=== PATIENT | female | born 1935 | race Caucasian/White ===

== ENCOUNTER → 2016-05-10 | Outpatient (CLI) | payer MEDICARE ==
[2016-05-10 09:28] LABS: Appearance,Urine Clear (Clear); Bilirubin,Urine Negative (Negative); Glucose,Urine (UA) Negative (Negative); Ketones,Urine Negative (Negative); Leukocyte Esterase,Urine Negative (Negative); Nitrite,Urine Negative (Negative); Protein,Urine Negative (Negative); Specific Gravity,Urine 1.011 (1.001-1.035); UA Billing (MACRO vs. MICRO) CHEM; Urobilinogen,Urine <2.0 mg/dL (<2.0)
[2016-05-10 09:28] LABS: Basophils # (A) 0.1 k/uL (0-0.2); Basophils % (A) 1 %; CH 29.3; CHCM 31.9; Eosinophils # (A) 0.3 k/uL (0-0.7); Eosinophils % (A) 4 %; HCT 38.7 % (34.0-46.0); HDW 2.58; HGB 12.5 gm/dL (11.4-16.0); Luc # (Auto) 0.22; Luc % (Auto) 3; Lymphocytes # (A) 1.9 k/uL (1.0-4.8); Lymphocytes % (A) 29 %; MCH 29.8 pg (25.0-35.0); MCHC 32.3 g/dL (31.0-37.0); MCV 92.3 fL (80.0-100.0); Mean Platelet Volume 7.9; Monocytes # (A) 0.5 k/uL (0-1.0); Monocytes % (A) 8 %; Neutrophils # (A) 3.7 k/uL (1.3-7.7); Neutrophils % (A) 55 %; RBC 4.19 m/uL (3.80-5.40); RDW 14.5 % (11.5-15.5); WBC 6.7 k/uL (3.8-10.6)
[2016-05-10 14:24] LABS: Calcium 11.4 mg/dL (8.4-10.2); Magnesium 2.2 mg/dL (1.6-2.3); Phosphorous 3.7 mg/dL (2.5-4.5); Potassium 4.6 mmol/L (3.5-5.1); Uric Acid 6.6 mg/dL (3.7-7.4)
== END | disposition home or self-care (01) ==
LOC: LABWHC1 08:44
PROVIDERS: ATTEND Nurse Practitioner Family
DX: N18.3 Chronic kidney disease, stage 3 (moderate) (principal); D64.9 Anemia, unspecified; E55.9 Vitamin D deficiency, unspecified; E21.3 Hyperparathyroidism, unspecified; M10.9 Gout, unspecified; N39.0 Urinary tract infection, site not specified
CPT/HCPCS: 36415; 80048; 81003; 82306; 82728; 83540; 83550; 83735; 83970; 84100; 84550; 85025

== ENCOUNTER → 2016-07-19 | Outpatient (CLI) | payer MEDICARE ==
[2016-07-19 11:28] LABS: Basophils % (A) 1 %; CH 29.3; CHCM 32.2; Eosinophils # (A) 0.2 k/uL (0-0.7); Eosinophils % (A) 4 %; HCT 35.3 % (34.0-46.0); HDW 2.51; HGB 11.5 gm/dL (11.4-16.0); Luc % (Auto) 2; Lymphocytes # (A) 1.5 k/uL (1.0-4.8); Lymphocytes % (A) 30 %; MCH 29.8 pg (25.0-35.0); MCHC 32.5 g/dL (31.0-37.0); MCV 91.8 fL (80.0-100.0); Mean Platelet Volume 7.2; Monocytes # (A) 0.4 k/uL (0-1.0); Monocytes % (A) 9 %; Neutrophils # (A) 2.7 k/uL (1.3-7.7); Neutrophils % (A) 54 %; RBC 3.84 m/uL (3.80-5.40); RDW 14.8 % (11.5-15.5); WBC (Perox) 4.87
[2016-07-19 11:39] LABS: Calcium 10.3 mg/dL (8.4-10.2); Magnesium 2.2 mg/dL (1.6-2.3); Phosphorous 3.3 mg/dL (2.5-4.5); Potassium 4.1 mmol/L (3.5-5.1); Total Protein 7.1 g/dL (6.3-8.2); Uric Acid 6.3 mg/dL (3.7-7.4)
[2016-07-19 12:04] LABS: INR 2.7 (<1.1); Prothrombin Time 25.6 sec (9.0-12.0)
== END | disposition home or self-care (01) ==
LOC: LABWHC1 10:33
PROVIDERS: ATTEND Nurse Practitioner Family
DX: Z00.00 Encounter for general adult medical examination without abnormal findings (principal); I25.10 Atherosclerotic heart disease of native coronary artery without angina pectoris; E78.00 Pure hypercholesterolemia, unspecified; I12.9 Hypertensive chronic kidney disease with stage 1 through stage 4 chronic kidney disease, or unspecified chronic kidney disease; N18.3 Chronic kidney disease, stage 3 (moderate); E03.9 Hypothyroidism, unspecified; I48.91 Unspecified atrial fibrillation; E55.9 Vitamin D deficiency, unspecified; N25.81 Secondary hyperparathyroidism of renal origin; N39.0 Urinary tract infection, site not specified
CPT/HCPCS: 36415; 80053; 82306; 82550; 83036; 83735; 83970; 84100; 84439; 84443; 84550; 85025; 85610

== ENCOUNTER → 2016-08-01 | Outpatient (CLI) | payer MEDICARE ==
[2016-08-01 08:57] LABS: Cholesterol 116 mg/dL (<200); HDL Cholesterol 49 mg/dL (40-60); Triglycerides 119 mg/dL (<150)
[2016-08-01 10:01] LABS: Appearance,Urine Clear (Clear); Bilirubin,Urine Negative (Negative); Glucose,Urine (UA) Negative (Negative); Ketones,Urine Negative (Negative); Leukocyte Esterase,Urine Negative (Negative); Nitrite,Urine Negative (Negative); Protein,Urine Negative (Negative); Specific Gravity,Urine 1.012 (1.001-1.035); UA Billing (MACRO vs. MICRO) CHEM; Urobilinogen,Urine <2.0 mg/dL (<2.0)
== END | disposition home or self-care (01) ==
LOC: LABWHC1 08:17
PROVIDERS: ATTEND Internal Medicine
DX: Z00.00 Encounter for general adult medical examination without abnormal findings (principal); I25.10 Atherosclerotic heart disease of native coronary artery without angina pectoris; I10 Essential (primary) hypertension; E78.00 Pure hypercholesterolemia, unspecified; N18.3 Chronic kidney disease, stage 3 (moderate); E03.9 Hypothyroidism, unspecified; I48.91 Unspecified atrial fibrillation
CPT/HCPCS: 36415; 80061; 81003

== ENCOUNTER → 2016-08-06 | Outpatient (CLI) | payer MEDICARE ==
--- NOTE | 2016-08-07 07:34 | MM ---
Reason for exam: screening (asymptomatic). Last mammogram was performed 1 year ago. History: Patient is postmenopausal and history of other cancer. Benign stereotactic core biopsy of the right breast, November 19, 2002. Benign stereotactic core biopsy of the right breast, October 25, 1999. Physical Findings: A clinical breast exam by your physician is recommended on an annual basis and results should be correlated with mammographic findings. MG 3D Screening Mammo W/Cad Bilateral CC, MLO, and XCCL view(s) were taken. Prior study comparison: July 29, 2015, bilateral MG screening mammo w CAD. July 12, 2014, bilateral MG screening mammo w CAD. There are scattered fibroglandular densities. Previous mammotome biopsy in the right breast. No significant changes when compared with prior studies. ASSESSMENT: Benign, BI-RAD 2 RECOMMENDATION: Routine screening mammogram of both breasts in 1 year.
== END | disposition home or self-care (01) ==
LOC: RADMAMWWP 11:02
PROVIDERS: ATTEND Internal Medicine
DX: Z12.31 Encounter for screening mammogram for malignant neoplasm of breast (principal)
CPT/HCPCS: 77063; G0202

== ENCOUNTER → 2016-08-17 | Outpatient (CLI) | payer MEDICARE ==
--- NOTE | 2016-08-17 10:33 | US ---
EXAMINATION TYPE: US abdomen complete DATE OF EXAM: 08/17/2016 COMPARISON: NONE CLINICAL HISTORY: R94.5 ABN LIVER FUNCTIONS. post jarrett, elderly EXAM MEASUREMENTS: Liver Length: 14.5 cm CBD: 0.4 cm Spleen: 9.4 cm Right Kidney: 9.4 x 9.1 x 3.1 cm Left Kidney: 8.8 x 4.8 x 4.3 cm Elvis exam limitations due to overlying bowel gas and pt habitus. Pancreas: tail gassed out, visualized portions wnl Liver: wnl Gallbladder: Surgically absent CBD: wnl Spleen: wnl as seen Right Kidney: wnl Left Kidney: wnl Upper IVC: wnl Abd Aorta: moderate amount of shadowing plaque throughout, limited assessment IMPRESSION: 1. Portions of the abdomen ultrasound visualized appear normal.
== END | disposition home or self-care (01) ==
LOC: RADUSWWP 09:31
PROVIDERS: ATTEND Internal Medicine Geriatric Medicine
DX: R94.5 Abnormal results of liver function studies (principal)
CPT/HCPCS: 76700

== ENCOUNTER → 2017-07-01 | Outpatient (CLI) | payer MEDICARE ==
--- NOTE | 2017-07-01 14:08 | US ---
EXAMINATION TYPE: US kidneys/renal and bladder DATE OF EXAM: 07/01/2017 COMPARISON: 08/17/2016 CLINICAL HISTORY: N18.2 STAGE III CHRONIC KIDNEY DISEASE. EXAM MEASUREMENTS: Right Kidney: 9.2 x 3.4 x 3.4 cm Left Kidney: 9.3 x 4.3 x 3.8 cm Right Kidney: wnl Left Kidney: wnl, scattered echogenic foci noted possible vascular calcifications. No shadowing. Bladder: wnl Bilateral Jets seen: no There is no evidence for hydronephrosis at this point in time. No masses are identified. The urina ry bladder is anechoic. Bilateral ureteral jets are seen. IMPRESSION: No sonographic sequela of medical renal disease given this patient's history of chronic kidney diseas e. Multiple subcentimeter left-sided echogenic foci are favored to represent vascular calcifications are seen as are nonshadowing. No evidence of hydronephrosis.
== END | disposition home or self-care (01) ==
LOC: WWCWWP 13:29
PROVIDERS: ATTEND Internal Medicine Nephrology
DX: N18.3 Chronic kidney disease, stage 3 (moderate) (principal)
CPT/HCPCS: 76770

== ENCOUNTER → 2017-10-23 | Outpatient (CLI) | payer MEDICARE ==
--- NOTE | 2017-10-23 16:08 | BD ---
EXAMINATION TYPE: Axial Bone Density DATE OF EXAM: 10/23/2017 COMPARISON: NONE previous 08/19/2015 CLINICAL HISTORY: Disorder of bone density Height: 65.5 Weight: 158.1 FRAX RISK QUESTIONS: Alcohol (3 or more units per day): no Family History (Parent hip fracture): no Glucocorticoids (More than 3mos): no (Ex: prednisone, prednisolone, methylprednisolone, dexamethasone, and hydrocortisone). History of Fracture in Adulthood: no Secondary Osteoporosis: 1. Type 1 Diabetes: no 2. Hyperthyroidism: no 3. Menopause before 45: no 4. Malnutrition: no 5. Chronic liver disease: no Rheumatoid Arthritis: no Current Tobacco Use: no RISK FACTORS HISTORY OF: Active: no Diet low in dairy products/other sources of calcium: no Postmenopausal woman: age 48 Lost more than 2 inches in height since high school: yes MEDICATIONS: -----Additional Medications: , MAGNESIUM, KLOR-CON, COUMADIN, IMDUR, LIPITOR, LASIX, ATE NOLOL, GLUCOSAMINE CHONDROITIN, LOSARTAN, POTASSIUM Thyroid Medications: levothyroxine How Lon years Additional History: EXAM MEASUREMENTS: Bone mineral densitometry was performed using the Guanri System. Bone mineral density as measured about the Lumbar spine is: ----- L1-L4(G/cm2): 1.382 T Score Values are as follows: ----- L2: 1.8 ----- L3: 2.8 ----- L4: 1.5 ----- L1-L4: 1.7 Bone mineral density has: increased 2.4 % since study of: 08.19.2015 Bone mineral density about the R hip (g/cm2): 0.944 Bone mineral density about the L hip (g/cm2): 0.835 T Score values are as follows: -----R Neck: -0.7 -----L Neck: -1.5 -----R Total: -2.1 -----L Total: -1.9 Bone mineral density has: Decreased -1.9% since study of: 08.19.2015 IMPRESSION: Osteopenia (T Score between -2.5 and -1). There is slightly increased risk of fracture and the patient may be considered for treatment. Re-Screen 2-5 years. NOTE: T-SCORE=SD OF THE YOUNG ADULT MEAN.
--- NOTE | 2017-10-24 14:44 | MM ---
Reason for exam: screening (asymptomatic). Last mammogram was performed 1 year and 3 months ago. History: Patient is postmenopausal and history of other cancer. Benign stereotactic core biopsy of the right breast, November 19, 2002. Benign stereotactic core biopsy of the right breast, October 25, 1999. Physical Findings: A clinical breast exam by your physician is recommended on an annual basis and results should be correlated with mammographic findings. MG 3D Screening Mammo W/Cad Bilateral CC and MLO view(s) were taken. Prior study comparison: August 06, 2016, bilateral MG 3d screening mammo w/cad. July 29, 2015, bilateral MG screening mammo w CAD. The breast tissue is heterogeneously dense. This may lower the sensitivity of mammography. No significant changes when compared with prior studies. ASSESSMENT: Benign, BI-RAD 2 RECOMMENDATION: Routine screening mammogram of both breasts in 1 year.
== END | disposition home or self-care (01) ==
LOC: RADMAMWWP 13:13
PROVIDERS: ATTEND Internal Medicine
DX: Z12.31 Encounter for screening mammogram for malignant neoplasm of breast (principal); M85.80 Other specified disorders of bone density and structure, unspecified site
CPT/HCPCS: 77063; 77067; 77080

== ENCOUNTER 2018-01-05 14:39 | Emergency (ER) | payer MEDICARE ==
[2018-01-05 14:53] VITALS: BP 143/75; PULSE 78; RESP 17; TEMP 97.8
[2018-01-05] MEDS ORDERED: SODIUM CHLORIDE 0.9% 1,000 ML IV ONE (15:15)
[2018-01-05] MEDS ORDERED: LIDOCAINE 1% INJ 10MG/ML (20 ML MDV) SQ STA (15:16)
--- NOTE | 2018-01-05 15:20 | ED ---
Fall HPI <Stephan Woods - Last Filed: 01/05/18 17:08> - General Source: patient, EMS, RN notes reviewed, old records reviewed Mode of arrival: EMS <Rosalba Webber - Last Filed: 01/05/18 17:22> - General Chief Complaint: Fall Stated Complaint: Fall Time Seen by Provider: 01/05/18 14:41 - History of Present Illness Initial Comments: 82-year-old female presents emergency Department after a fall. She reports that she fell backward and hit the back of her head. She is on Coumadin. Patient states that she complains of some neck pain. She was in the parking lot of the [employer] when this occurred. A bystander saw her and called 911. She complains of some mild discomfort in her right hand which she try to catch herself. Patient states that she was ambulatory on scene. She had no loss consciousness. Patient relates she's had no vomiting. (Rosalba Webber) - Related Data Home Medications Medication Instructions Recorded Confirmed Atenolol [Tenormin] 25 mg PO DAILY 07/15/17 08/19/17 Atorvastatin [Lipitor] 20 mg PO HS 07/15/17 08/19/17 Cinacalcet [Sensipar] 30 mg PO WEEKLY 07/15/17 08/19/17 Furosemide [Lasix] 40 mg PO MOWEFR 07/15/17 08/19/17 Glucosam/Chacho-Msm1/C/Ke/Bosw 2 tab PO DAILY 07/15/17 08/19/17 [Glucosamine-Chondroitin Tablet] Isosorbide Mononitrate ER [Imdur] 30 mg PO BID 07/15/17 08/19/17 Levothyroxine Sodium [Synthroid] 125 mcg PO DAILY 07/15/17 08/19/17 Losartan Potassium [Cozaar] 25 mg PO DAILY 07/15/17 08/19/17 Magnesium Oxide 400 mg PO HS 07/15/17 08/19/17 Potassium Chloride [Klor-Con 20] 20 meq PO MOWEFR 07/15/17 08/19/17 Warfarin [Coumadin] 5 mg PO DAILY 07/15/17 08/19/17 Allergies Allergy/AdvReac Type Severity Reaction Status Date / Time No Known Allergies Allergy Verified 08/19/17 12:47 Review of Systems ROS Other: All systems not noted in ROS Statement are negative. <Stephan Woods - Last Filed: 01/05/18 17:08> ROS Other: All systems not noted in ROS Statement are negative. <Rosalba Webber - Last Filed: 01/05/18 17:22> ROS Statement: Those systems with pertinent positive or pertinent negative responses have been documented in the HPI. Past Medical History Past Medical History: Atrial Fibrillation, Coronary Artery Disease (CAD), Hyperlipidemia, Hypertension, Thyroid Disorder, Vascular Disorder History of Any Multi-Drug Resistant Organisms: None Reported Past Surgical History: Cholecystectomy, Heart Catheterization With Stent, Hysterectomy Date of Last Stent Placement:: 1997 Past Psychological History: No Psychological Hx Reported Smoking Status: Former smoker Past Alcohol Use History: None Reported Past Drug Use History: None Reported - Past Family History Mother Family Medical History: Coronary Artery Disease (CAD) Additional Family Medical History / Comment(s): age 73. Had very poor health. Father Family Medical History: Coronary Artery Disease (CAD) Additional Family Medical History / Comment(s): Heart issues. in his 80's <Rosalba Webber - Last Filed: 01/05/18 17:22> General Exam <Stephan Woods - Last Filed: 01/05/18 17:08> Limitations: no limitations General appearance: alert, in no apparent distress Head exam: Present: normocephalic, normal inspection. Absent: atraumatic ( Patient has a 4 cm hematoma over the right posterior lower parietal scalp. ) Eye exam: Present: normal appearance, PERRL, EOMI. Absent: scleral icterus, conjunctival injection, periorbital swelling ENT exam: Present: normal exam, normal oropharynx, mucous membranes moist Neck exam: Present: normal inspection, other (She is currently in c-collar.). Absent: tenderness, meningismus, lymphadenopathy Respiratory exam: Present: normal lung sounds bilaterally. Absent: respiratory distress, wheezes, rales, rhonchi, stridor Cardiovascular Exam: Present: regular rate, normal rhythm, normal heart sounds. Absent: systolic murmur, diastolic murmur, rubs, gallop, clicks GI/Abdominal exam: Present: soft, normal bowel sounds. Absent: distended, tenderness, guarding, rebound, rigid Extremities exam: Present: normal inspection, full ROM, normal capillary refill. Absent: tenderness, pedal edema, joint swelling, calf tenderness Back exam: Present: normal inspection Neurological exam: Present: alert, oriented X3, CN II-XII intact Psychiatric exam: Present: normal affect, normal mood <Rosalba Webber - Last Filed: 01/05/18 17:22> - General Exam Comments Initial Comments: 82-year-old female. Alert and oriented 3. Patient appears in no acute distress. (Rosalba Webber) Course <Stephan Woods - Last Filed: 01/05/18 17:08> <Rosalba Webber - Last Filed: 01/05/18 17:22> Vital Signs 01/05/18 14:50 Temperature 97.8 F Pulse Rate 78 Respiratory 17 Rate Blood Pressure 143/75 O2 Sat by Pulse 96 Oximetry - Reevaluation(s) Reevaluation #1: 01/05/18 17:08 PA supervision: I proceeded a [id number] evaluation the patient and did examine the patient. She did fall to her vehicle she is unsure exactly how this occurred she did strike her head. She had no loss of consciousness. She did sustain a laceration of the occipital parietal scalp. He does have a large hematoma. CAT scan was negative for acute findings other than soft tissue injury. C-spine T the neck showed degenerative changes no acute findings. Patient is awake alert oriented 3 Ash Coma Scale of 15 she is hard of hearing however. I do agree with the assessment and plan the patient is in satisfactory condition for discharge once the scalp laceration is repaired. ( Stephan Woods) Procedures - Laceration Laceration #1 Indication: laceration Site: scalp Size (cm): 2 Description: flap Depth: simple, single layer Anesthetic Used: lidocaine 1% Anesthesia Technique: local infiltration Amount (mls): 2 Pre-repair: wound explored, irrigated extensively Type of Sutures: other (staple) Number of Sutures: 5 Patient Tolerated Procedure: well, no complications <Rosalba Webber - Last Filed: 01/05/18 17:22> Medical Decision Making - Lab Data Result diagrams: 01/05/18 15:15 01/05/18 15:15 <Stephan Woods - Last Filed: 01/05/18 17:08> - Lab Data Result diagrams: 01/05/18 15:15 01/05/18 15:15 - Radiology Data Radiology results: report reviewed <Rosalba Webber - Last Filed: 01/05/18 17:22> - Medical Decision Making Patient is a 52-year-old female who presents emergency department today after sustaining a fall in the parking lot. Patient is alert and oriented. She has no neurological deficits. There is some mild right hand pain. She is full range of motion noted. No difficulties with ambulation. CT of her brain and C- spine was completed. This was negative for any acute process. Patient's lab work today was reviewed. She does have a mildly elevated INR of 3.3. Patient' s has a significant scalp hematoma. The laceration was closed with 5 robert. Pressure dressing applied. Patient does have evidence of kidney injury. This is chronic for her. Chest x-ray did read to show increased upper fullness in the bilateral lung martinez. Recommended outpatient CT of her chest for follow- up. Skin be done out patiently by PCP. Discussed with the Patient being on Coumadin and to be monitored for hydration we would have to transfer her to [facility] with neurosurgery. Discussed the unlikely event of the bleed due to normal computed tomography scan at this time but it could be a possibility. Patient states she would like to go home. Discussed all the findings with the Patient. Discussed that she needs to be monitored for the next 24-48 hours if there is any signs of altered mental status she should return to emergency department for concerns for delayed bleed. Patient agrees to treatment plan will comply. Return parameters were discussed. (Rosalba Webber) - Lab Data Lab Results 01/05/18 01/05/18 01/05/18 Range/Units 15:15 15:15 15:15 WBC 5.9 (3.8-10.6) k/uL RBC 4.18 (3.80-5.40) m/uL Hgb 12.4 (11.4-16.0) gm/dL Hct 38.5 (34.0-46.0) % MCV 92.0 (80.0-100.0) fL MCH 29.6 (25.0-35.0) pg MCHC 32.1 (31.0-37.0) g/dL RDW 14.4 (11.5-15.5) % Plt Count 185 (150-450) k/uL Neutrophils % 50 % Lymphocytes % 36 % Monocytes % 7 % Eosinophils % 5 % Basophils % 1 % Neutrophils # 2.9 (1.3-7.7) k/uL Lymphocytes # 2.1 (1.0-4.8) k/uL Monocytes # 0.4 (0-1.0) k/uL Eosinophils # 0.3 (0-0.7) k/uL Basophils # 0.0 (0-0.2) k/uL PT 29.6 H (9.0-12.0) sec INR 3.3 H (<1.2) APTT 28.4 (22.0-30.0) sec Sodium 138 (137-145) mmol/L Potassium 4.7 (3.5-5.1) mmol/L Chloride 108 H (98-107) mmol/L Carbon Dioxide 21 L (22-30) mmol/L Anion Gap 9 mmol/L BUN 41 H (7-17) mg/dL Creatinine 1.75 H (0.52-1.04) mg/dL Est GFR (CKD-EPI)AfAm 31 (>60 ml/min/1.73 sqM) Est GFR (CKD-EPI)NonAf 27 (>60 ml/min/1.73 sqM) Glucose 101 H (74-99) mg/dL Calcium 10.8 H (8.4-10.2) mg/dL Troponin I (0.000-0.034) ng/mL 01/05/18 Range/Units 15:15 WBC (3.8-10.6) k/uL RBC (3.80-5.40) m/uL Hgb (11.4-16.0) gm/dL Hct (34.0-46.0) % MCV (80.0-100.0) fL MCH (25.0-35.0) pg MCHC (31.0-37.0) g/dL RDW (11.5-15.5) % Plt Count (150-450) k/uL Neutrophils % % Lymphocytes % % Monocytes % % Eosinophils % % Basophils % % Neutrophils # (1.3-7.7) k/uL Lymphocytes # (1.0-4.8) k/uL Monocytes # (0-1.0) k/uL Eosinophils # (0-0.7) k/uL Basophils # (0-0.2) k/uL PT (9.0-12.0) sec INR (<1.2) APTT (22.0-30.0) sec Sodium (137-145) mmol/L Potassium (3.5-5.1) mmol/L Chloride (98-107) mmol/L Carbon Dioxide (22-30) mmol/L Anion Gap mmol/L BUN (7-17) mg/dL Creatinine (0.52-1.04) mg/dL Est GFR (CKD-EPI)AfAm (>60 ml/min/1.73 sqM) Est GFR (CKD-EPI)NonAf (>60 ml/min/1.73 sqM) Glucose (74-99) mg/dL Calcium (8.4-10.2) mg/dL Troponin I <0.012 (0.000-0.034) ng/mL 01/05/18 16:32 EKG shows atrial fibrillation, low voltage QRS. And cannot really anteroseptal infarct age undetermined. Ventricular rate of 76 bpm. UT interval is undetectable. QRS duration 82 ms. QT QTc is 382/429 ms. (Rosalba Webber) - Radiology Data Chronic appearing white matter ischemic changes. Multilevel degenerative changes, vertebral joint hypertrophy contributing to severe stenosis. There is no acute osseous normality. Nonspecific increased lung markings. Following up with CT chest can be performed. No acute osseous eyebrow appears just in of soft tissue swelling at the level of the wrist. Degenerative changes. Developing fullness within the hilar regions greater on the right. Additional workup with contrast CT is recommended. No acute post medic changes. (Rosalba Webber) Disposition <Stephan Woods - Last Filed: 01/05/18 17:08> Is patient prescribed a controlled substance at d/c from ED?: No Time of Disposition: 17:20 <Rosalba Webber - Last Filed: 01/05/18 17:22> Clinical Impression: Abnormal CXR, Fall, Scalp hematoma Disposition: HOME SELF-CARE Condition: Good Instructions: Staple Care (ED) Additional Instructions: Patient advised to follow-up with Dr. Mello. Patient should be monitored for the next 24-48 hours if there is any signs of altered mental status Patient should be return to emergency department at once. Please return to the emergency room in 8-10 days to have robert removed. Please leave wound covered for the first 24-48 hours and then leave open to air after that time. Please use clean soap and water to clean the staple area to prevent scabbing over the top of your sutures. Please watch for any signs of infection which may include but not limited to increased pain, swelling, redness, fever or chills. Please return to the emergency room if any signs of infection do occur. Please return to the emergency room for any other concerns or complications. Referrals: Verónica Mello MD [Primary Care Provider] - 1-2 days
[2018-01-05 15:25] LABS: Basophils % (A) 1 %; Eosinophils # (A) 0.3 k/uL (0-0.7); Eosinophils % (A) 5 %; HCT 38.5 % (34.0-46.0); HGB 12.4 gm/dL (11.4-16.0); Lymphocytes # (A) 2.1 k/uL (1.0-4.8); Lymphocytes % (A) 36 %; MCH 29.6 pg (25.0-35.0); MCHC 32.1 g/dL (31.0-37.0); Mean Platelet Volume 7.4; Monocytes # (A) 0.4 k/uL (0-1.0); Monocytes % (A) 7 %; Neutrophils # (A) 2.9 k/uL (1.3-7.7); Neutrophils % (A) 50 %; Platelet Count 185 k/uL (150-450); RBC 4.18 m/uL (3.80-5.40); RDW 14.4 % (11.5-15.5); WBC 5.9 k/uL (3.8-10.6)
[2018-01-05 15:37] LABS: Calcium 10.8 mg/dL (8.4-10.2); Potassium 4.7 mmol/L (3.5-5.1)
[2018-01-05 15:46] LABS: INR 3.3 (<1.2); Partial Thromboplastin Time 28.4 sec (22.0-30.0); Prothrombin Time 29.6 sec (9.0-12.0)
--- NOTE | 2018-01-05 16:13 | CT ---
EXAMINATION TYPE: CT brain moshe ocasio DATE OF EXAM: 01/05/2018 COMPARISON: None HISTORY: POSTERIOR HEAD LACERATION AFTER FALL INJURY CT DLP: 895.3 mGycm, Automated exposure control for dose reduction was used. CONTRAST: Patient injected with 0 mL of Isovue 300. CT of the brain is performed utilizing 3 mm thick sections through the posterior fossa and 3 mm thick sections through the remaining calvarium. Study is performed within 24 hours of arrival to the hospital. No abnormal hyperdensity is present to suggest an acute intracranial hemorrhage. No mass lesion is evident. No acute infarcts are evident. Mild periventricular white matter hypodensity is present, likely on t he basis of chronic white matter ischemic changes. Ventricles and sulci are appropriate for the patient age. Posterior soft tissue swelling is at the right occipital vertex. No acute fractures are evident. Paranasal sinuses and mastoid air cells within the [id number] are clear. IMPRESSIONS: 1. Mild chronic appearing white matter ischemic changes CT cervical spine. COMPARISON: None CT of the cervical spine is performed in the axial plane at 2 mm thick sections. Reconstructed image s in the coronal, and sagittal plane are reviewed on the computer. No acute fractures are evident. Vertebral body alignment is straightened. Loss of disc height throughout the cervical spine. Vertebral body heights are preserved. Endplate spurring is noted C5-6-7 posteriorly. Anterior vertebral body spurring is present C4, C5, C6 . Bilateral foraminal narrowing from uncovertebral joint hypertrophy is present C6-7 bilaterally severe foraminal narrowing is present C5-6 bilaterally greater on the right, severe bilateral foraminal akil nosis at C4-5 due to uncovertebral joint hypertrophy. There is increased lung markings at the lung apices which is nonspecific. Follow-up chest CT in an ou tpatient basis to reevaluate this is recommended. IMPRESSIONS: 1. Multilevel degenerative disc changes and uncovertebral joint hypertrophy contributing to severe st enosis. 2. No acute osseous abnormality. 3. Nonspecific increased lung markings. Follow-up CT chest can be performed.
--- NOTE | 2018-01-05 16:47 | XR ---
EXAMINATION TYPE: XR chest 2V DATE OF EXAM: 01/05/2018 COMPARISON: 03/15/2014 INDICATION: Pain following fall TECHNIQUE: Frontal and lateral views of the chest are obtained. FINDINGS: The heart size is there is increasing prominence of the hilar regions greater on the right. Additiona l workup with contrast CT is recommended.. The pulmonary vasculature is prominent. The lungs are clear. No pneumothorax is evident. No displaced fractures are identified. IMPRESSION: 1. Developing fullness within the hilar regions greater on the right. Additional workup with contrast CT is recommended. 2. No acute posttraumatic changes.
--- NOTE | 2018-01-05 16:48 | XR ---
EXAMINATION TYPE: XR hand complete RT DATE OF EXAM: 01/05/2018 COMPARISON: None HISTORY: Fall, pain TECHNIQUE: Three-view right hand FINDINGS: No acute displaced fractures are evident. There are some degenerative joint changes present . Calcification is at the triangular fibrocartilage region. Soft tissues may be somewhat prominent ov er the wrist. Degenerative joint changes are within the distal index and middle fingers. IMPRESSION: 1. No acute osseous abnormality. 2. Suggestion of soft tissue swelling at the level the wrist. 3. Degenerative joint changes.
== END 2018-01-05 19:14 | disposition home or self-care (01) ==
LOC: EC 14:39
DX: S01.01XA Laceration without foreign body of scalp, initial encounter (principal); R91.8 Other nonspecific abnormal finding of lung field; R79.1 Abnormal coagulation profile; R29.898 Other symptoms and signs involving the musculoskeletal system; I48.91 Unspecified atrial fibrillation; I25.10 Atherosclerotic heart disease of native coronary artery without angina pectoris; E78.5 Hyperlipidemia, unspecified; I10 Essential (primary) hypertension; E07.9 Disorder of thyroid, unspecified; Z87.891 Personal history of nicotine dependence; Z79.01 Long term (current) use of anticoagulants; Z79.899 Other long term (current) drug therapy; Z95.5 Presence of coronary angioplasty implant and graft; Z82.49 Family history of ischemic heart disease and other diseases of the circulatory system; W18.00XA Striking against unspecified object with subsequent fall, initial encounter; Y92.481 Parking lot as the place of occurrence of the external cause
CPT/HCPCS: 36415; 93005; 80048; 84484; 85025; 85610; 85730; 73130; 71046; 72125; 70450; 99285; 12001; 96360; J2001

== ENCOUNTER → 2018-01-17 | Outpatient (CLI) | payer MEDICARE ==
[~2018-01-17] MED LIST: SODIUM CHLORIDE 0.9% 250 ML with PAMIDRONATE 30 MG IV ONE; SODIUM CHLORIDE 0.9% 500 ML 500 ML in EMPTY BAG 1 BAG IV PRN
[2018-01-17 12:02] VITALS: BP 125/75; PULSE 80; RESP 16; TEMP 97.9
== END | disposition home or self-care (01) ==
LOC: PROCWHC3 11:36
PROVIDERS: ATTEND Internal Medicine Nephrology
DX: E83.52 Hypercalcemia (principal)
CPT/HCPCS: 96365; 96366; J2430

== ENCOUNTER → 2018-08-07 | Outpatient (CLI) | payer MEDICARE ==
--- NOTE | 2018-08-07 15:17 | US ---
LOWER EXTREMITY VENOUS INSUFFICIENCY SIDE PERFORMED: Left 1) Color flow is present and patency is documented in the following vessels. No DVT or SVT is noted . EIV Common Femoral Vein Deep Femoral Vein Femoral Vein Popliteal Vein Proximal Calf Veins Greater Saph Vein Upper Small Saph Vein 2) There is venous reflux noted at the following venous levels: EIV, CFV, prox mid and distal femor al vein, prox mid and distal popliteal vein, SSV IMPRESSION: 1. No evidence of deep venous arthrosis or superficial venous thrombosis within the imaged left lower extremity venous system. 2. Venous reflux throughout the left lower extremity as detailed above.
== END | disposition home or self-care (01) ==
LOC: RADUSWWP 13:22
PROVIDERS: ATTEND Family Medicine
DX: L03.116 Cellulitis of left lower limb (principal); T14.8XXA Other injury of unspecified body region, initial encounter; T81.31XD Disruption of external operation (surgical) wound, not elsewhere classified, subsequent encounter; S01.01XS Laceration without foreign body of scalp, sequela
CPT/HCPCS: 93922

== ENCOUNTER → 2018-11-04 | Outpatient (CLI) | payer MEDICARE ==
--- NOTE | 2018-11-04 14:00 | XR ---
EXAMINATION TYPE: XR knee complete LT DATE OF EXAM: 11/04/2018 CLINICAL HISTORY: Left knee pain TECHNIQUE: Three views of the left knee are obtained. COMPARISON: None. FINDINGS: There is no acute fracture/dislocation evident in left knee. There is tricompartmental nomi nt space narrowing and small marginal osteophytes all of the joint spaces maintain normal alignment. Chondrocalcinosis is seen of both the medial and lateral compartment. Vascular atherosclerosis of the femoral artery and its branches. There is an irregular lobulated density overlying the patellar tend on that appears extraosseous measuring 4.3 x 4.0 x 2.4 cm. There are some hazy irregular margins ronaldo g the medial aspect. Mild diffuse osseous demineralization is seen. IMPRESSION: 1. Pretibial extraosseous lobulated dense 4.3 cm mass overlying the patellar tendon. MRI with contras t of the left knee is recommended to evaluate for any soft tissue component. 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 Correlate with any prior trauma as this would be an atypical location for myositis ossifi cans although this could be possible. Synovial calcifications are also possible. 2. Bicompartmental chondrocalcinosis and tricompartmental moderate arthropathy of the left knee.
== END | disposition home or self-care (01) ==
LOC: RADXRMAIN 09:33
PROVIDERS: ATTEND Internal Medicine
DX: M17.12 Unilateral primary osteoarthritis, left knee (principal); M11.262 Other chondrocalcinosis, left knee; C41.9 Malignant neoplasm of bone and articular cartilage, unspecified; R22.42 Localized swelling, mass and lump, left lower limb

== ENCOUNTER → 2018-11-25 | Outpatient (CLI) | payer MEDICARE ==
--- NOTE | 2018-11-27 09:57 | MM ---
Reason for exam: screening (asymptomatic). Last mammogram was performed 1 year and 1 month ago. History: Patient is postmenopausal and history of other cancer. Benign stereotactic core biopsy of the right breast, November 19, 2002. Benign stereotactic core biopsy of the right breast, October 25, 1999. Physical Findings: A clinical breast exam by your physician is recommended on an annual basis and results should be correlated with mammographic findings. MG Screening Mammo w CAD Bilateral CC and MLO view(s) were taken. XCCL view(s) were taken of the right breast. Prior study comparison: October 23, 2017, bilateral MG 3d screening mammo w/cad. August 06, 2016, bilateral MG 3d screening mammo w/cad. The breast tissue is heterogeneously dense. This may lower the sensitivity of mammography. No significant changes when compared with prior studies. ASSESSMENT: Benign, BI-RAD 2 RECOMMENDATION: Routine screening mammogram of both breasts in 1 year.
== END | disposition home or self-care (01) ==
LOC: RADMAMWWP 14:26
PROVIDERS: ATTEND Internal Medicine
DX: Z12.31 Encounter for screening mammogram for malignant neoplasm of breast (principal)
CPT/HCPCS: 77067

== ENCOUNTER → 2019-03-11 | Outpatient (CLI) | payer MEDICARE ==
--- NOTE | 2019-03-11 13:27 | XR ---
EXAMINATION TYPE: XR chest 2V DATE OF EXAM: 03/11/2019 COMPARISON: 01/05/2018 INDICATION: Cough and congestion TECHNIQUE: Frontal and lateral views of the chest are obtained. FINDINGS: The heart size is upper limits of normal. The pulmonary vasculature is normal. Some mild infrahilar increased lung markings are present. Correlate for pneumonia and bronchitis IMPRESSION: 1. Mild infrahilar filtrates bilaterally. Correlate for acute bronchitis or pneumonia.
== END | disposition home or self-care (01) ==
LOC: RADXRMAIN 12:31
PROVIDERS: ATTEND Internal Medicine
DX: R91.8 Other nonspecific abnormal finding of lung field (principal)
CPT/HCPCS: 71046